=== PATIENT | female | born 1945 | race Caucasian/White ===

== ENCOUNTER 2021-04-09 16:16 | Inpatient (IN) ==
[2021-04-10] MEDS: carvediloL 6.25 MG TABLET PO SCH (21:13)
[2021-04-10] MEDS: Baclofen 10 MG TABLET PO SCH (21:30)
[2021-04-11 04:38] LABS: Basophils % 0.7 %; Eosinophils # 0.2 K/mcL (0.0-0.6); Eosinophils % 3.9 %; Hematocrit 31.3 % (35.3-44.9); Hemoglobin 10.9 g/dL (11.5-15.4); Immature Granulocytes % 0.5 % (0-4); Lymphocytes % 16.8 %; Mean Corpuscular HGB Conc 34.8 g/dL (31.6-35.5); Mean Corpuscular Hemoglobin 33.3 pg (28.0-33.3); Mean Corpuscular Volume 95.7 fL (83.0-100.0); Monocytes # 0.8 K/mcL (0.0-1.3); Monocytes % 13.9 %; Neutrophils # 3.8 K/mcL (1.6-8.9); Platelet Count 219 K/mcL (140-400); Red Blood Count 3.27 M/mcL (3.82-4.97); Red Cell Distribution Width 11.7 % (11.5-14.5); Segmented Neutrophils % 64.2 %
[2021-04-11 04:53] LABS: BUN/Creatinine Ratio 14 (6-26); Blood Urea Nitrogen 8 mg/dL (8-23); Calcium 8.4 mg/dL (8.6-10.3); Carbon Dioxide 25 mEq/L (23-29); Chloride 100 mEq/L (98-107); Glucose 97 mg/dL (70-105); Osmolality,Calculated 274 (280-300); Potassium 3.3 mEq/L (3.5-5.1); Sodium 133 mEq/L (136-145); eGFR For African Americans > 60 (> 60); eGFR For Non-African Americans > 60 (> 60)
[2021-04-11] MEDS ORDERED: *HR* Enoxaparin 40 MG/0.4 ML SYRINGE SQ SCH (07:00)
[2021-04-11] MEDS: BuPROPion XL (24 HR) 150 MG TABLET PO SCH (08:53)
[2021-04-11] MEDS: lisinopriL 20 MG TABLET PO SCH (08:54)
[2021-04-11] MEDS: carvediloL 6.25 MG TABLET PO SCH ×2 (08:54→16:05)
[2021-04-11] MEDS: Baclofen 10 MG TABLET PO SCH ×4 (08:55→21:14)
[2021-04-11] MEDS ORDERED: Baclofen 10 MG TABLET PO SCH (21:00)
[2021-04-11] MEDS: Latanoprost 2.5 ML BOTTLE BOTH EYES SCH (21:14)
[2021-04-12] MEDS: BuPROPion XL (24 HR) 150 MG TABLET PO SCH (08:33)
[2021-04-12] MEDS: lisinopriL 20 MG TABLET PO SCH (08:33)
[2021-04-12] MEDS: carvediloL 6.25 MG TABLET PO SCH ×2 (08:33→16:46)
[2021-04-12] MEDS: Baclofen 10 MG TABLET PO SCH ×3 (08:33→20:23)
[2021-04-12] MEDS: Latanoprost 2.5 ML BOTTLE BOTH EYES SCH (20:24)
[2021-04-13] MEDS: lisinopriL 20 MG TABLET PO SCH (08:46)
[2021-04-13] MEDS: BuPROPion XL (24 HR) 150 MG TABLET PO SCH (08:46)
[2021-04-13] MEDS: carvediloL 6.25 MG TABLET PO SCH ×2 (08:46→18:13)
[2021-04-13] MEDS: Baclofen 10 MG TABLET PO SCH ×3 (08:47→20:43)
[2021-04-13] MEDS: Latanoprost 2.5 ML BOTTLE BOTH EYES SCH (20:45)
[2021-04-14 06:03] LABS: Basophils % 0.6 %; Eosinophils # 0.2 K/mcL (0.0-0.6); Eosinophils % 3.5 %; Hematocrit 30.2 % (35.3-44.9); Hemoglobin 10.4 g/dL (11.5-15.4); Immature Granulocytes % 0.4 % (0-4); Lymphocytes # 1.1 K/mcL (0.6-4.6); Lymphocytes % 22.8 %; Mean Corpuscular HGB Conc 34.4 g/dL (31.6-35.5); Mean Corpuscular Hemoglobin 33.3 pg (28.0-33.3); Mean Corpuscular Volume 96.8 fL (83.0-100.0); Mean Platelet Volume 10.4 fL (9.4-12.4); Monocytes # 0.7 K/mcL (0.0-1.3); Neutrophils # 2.9 K/mcL (1.6-8.9); Platelet Count 254 K/mcL (140-400); Red Blood Count 3.12 M/mcL (3.82-4.97); Red Cell Distribution Width 11.7 % (11.5-14.5); Segmented Neutrophils % 58.7 %; White Blood Count 4.9 K/mcL (4.3-11.1)
[2021-04-14 06:20] LABS: BUN/Creatinine Ratio 9 (6-26); Blood Urea Nitrogen 6 mg/dL (8-23); Calcium 8.5 mg/dL (8.6-10.3); Carbon Dioxide 27 mEq/L (23-29); Chloride 98 mEq/L (98-107); Glucose 86 mg/dL (70-105); Osmolality,Calculated 271 (280-300); Potassium 3.5 mEq/L (3.5-5.1); Sodium 132 mEq/L (136-145); eGFR For African Americans > 60 (> 60); eGFR For Non-African Americans > 60 (> 60)
[2021-04-14] MEDS: carvediloL 6.25 MG TABLET PO SCH ×2 (08:47→17:41)
[2021-04-14] MEDS: Baclofen 10 MG TABLET PO SCH ×3 (08:47→21:04)
[2021-04-14] MEDS: BuPROPion XL (24 HR) 150 MG TABLET PO SCH (08:47)
[2021-04-14] MEDS: lisinopriL 20 MG TABLET PO SCH (08:47)
[2021-04-14] MEDS: Latanoprost 2.5 ML BOTTLE BOTH EYES SCH (21:05)
[2021-04-15] MEDS: lisinopriL 20 MG TABLET PO SCH (10:10)
[2021-04-15] MEDS: BuPROPion XL (24 HR) 150 MG TABLET PO SCH (10:10)
[2021-04-15] MEDS: Baclofen 10 MG TABLET PO SCH ×3 (10:10→20:42)
[2021-04-15] MEDS: carvediloL 6.25 MG TABLET PO SCH ×2 (10:10→16:36)
[2021-04-15] MEDS: Latanoprost 2.5 ML BOTTLE BOTH EYES SCH (22:50)
[2021-04-16] MEDS: BuPROPion XL (24 HR) 150 MG TABLET PO SCH (08:04)
[2021-04-16] MEDS: lisinopriL 20 MG TABLET PO SCH (08:05)
[2021-04-16] MEDS: carvediloL 6.25 MG TABLET PO SCH ×2 (08:05→16:18)
[2021-04-16] MEDS: Baclofen 10 MG TABLET PO SCH ×3 (08:05→20:44)
[2021-04-16] MEDS: Latanoprost 2.5 ML BOTTLE BOTH EYES SCH (23:06)
[2021-04-17] MEDS: Baclofen 10 MG TABLET PO SCH ×3 (09:33→19:39)
[2021-04-17] MEDS: BuPROPion XL (24 HR) 150 MG TABLET PO SCH (09:33)
[2021-04-17] MEDS: carvediloL 6.25 MG TABLET PO SCH ×2 (09:33→16:04)
[2021-04-17] MEDS: lisinopriL 20 MG TABLET PO SCH (09:33)
[2021-04-17] MEDS: Latanoprost 2.5 ML BOTTLE BOTH EYES SCH (19:39)
[2021-04-18 07:27] VITALS: BP 143/86; PULSE 68; RESP 15; TEMP 97.6; O2SAT 97
[2021-04-18] MEDS: lisinopriL 20 MG TABLET PO SCH (08:03)
[2021-04-18] MEDS: carvediloL 6.25 MG TABLET PO SCH (08:03)
[2021-04-18] MEDS: Baclofen 10 MG TABLET PO SCH (08:03)
[2021-04-18] MEDS: BuPROPion XL (24 HR) 150 MG TABLET PO SCH (08:05)
== END 2021-04-18 13:54 | disposition home health service (06) ==
LOC: INPGRE 04-10 17:44
PROVIDERS: ADMIT Family Medicine; ATTEND Family Medicine